=== PATIENT | female | born 1940 | race Caucasian/White ===

== ENCOUNTER 2021-02-11 10:54 | Day surgery (SDC) | payer OTHER ==
[~2021-02-11] VITALS: Ht 160 cm; Wt 83.9 kg
[~2021-02-11 10:54] MED LIST: HYDROCHLOROTH12.5 M2 PO; LIPITOR 40 MG T40 M1 PO; PROTONIX40 M2 PO; VITAMIN D31250 MC1 PO; VITAMIN D350 MCG PO
[2021-02-11 11:53] LABS: HEMATOCRIT 40.7 % (37.0-47.0); HEMOGLOBIN 13.3 gm/dL (12.0-15.0); MCHC 32.8 g/dL (28.0-37.0); MCV 91.5 fL (80.0-100.0); RBC 4.45 mil/uL (4.20-5.00); RDW 12.8 % (10.5-14.5)
[2021-02-11 12:02] LABS: CALCIUM 9.2 mg/dL (8.5-10.1); POTASSIUM 3.2 mmol/L (3.5-5.1)
[2021-02-11 12:09] LABS: ALBUMIN 3.3 g/dL (3.4-5.0); TOTAL BILIRUBIN 1.7 mg/dL (0.2-1.0); TOTAL PROTEIN 6.8 g/dL (6.4-8.2)
[2021-02-11 14:06] VITALS: BP 131/80
[2021-02-11] MEDS ORDERED: MIRALAX17 GM PO (14:16)
[2021-02-11] MEDS ORDERED: COLACE 100 MG100 MG PO (14:16)
[2021-02-11] MEDS ORDERED: HYDROCODON-ACE1 EAC7 PO (14:16)
[2021-02-11 15:02] VITALS: BP 131/80
--- NOTE | 2021-02-12 06:51 | EKG ---
[place] [address] [facility] [place] [address] ELECTROCARDIOGRAM REPORT Name: SANTIAGO BRO Room #: [facility].#: [id number] Admission: 02/11/21 Attend Phys: Kelechi Campuzano MD Discharge: Date of : 42 Report #: [id number] [facility]ly [facility] Test Date: 2021-02-11 Test Time: 11:59:15 Pat Name: SANTIAGO BRO Department: Room: Gender: F Rn Float: SBUL : 1940 Requested By: Kelechi Campuzano Order Number: [id number] : [address] Measurements Intervals [place] Rate: 73 P: -10 AK: 111 QRS: -6 QRSD: 91 T: 8 QT: 404 QTc: 446 Interpretive Statements Sinus rhythm Borderline short AK interval No previous ECG available for comparison Electronically Signed On 02-12-2021 6:51:[address] [email or web address] <ELECTRONICALLY SIGNED> By: [address] Street MD, [facility] 02/12/[address] MD, FACC /EPI
--- NOTE | 2021-02-17 09:08 | PATH ---
[facility] [place] [address] PATHOLOGY RPT PROCEDURE Name: SANTIAGO BRO Room #: [facility] [place].#: [id number] Admission: 02/11/21 Date of : 42 Discharge: 02/11/21 Report #: [id number] Path Case #: [id number] [facility] Accession Number: [id number] . 01 Material submitted: . gallbladder - GALLBLADDER . 01 Clinical history: . LAPAROSCOPIC CHOLECYSTECTOMY SYMPTOMATIC CHOLELITHIASIS FOR PA: "DR. CHANDLER MENTIONED A "WHITE STREAK-LIKE" LOCUS ON THE [place] OF THE GALLBLADDER-- HEPATIC BED. PLEASE SAMPLE THAT."- Dr. FELIPE . 02 Diagnosis: Gallbladder, cholecystectomy: - Mild chronic cholecystitis. - Cholelithiasis. 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 (IUV:pit; 02/16/2021) QTP 02/16/2021 [facility] Local . 02 Electronically signed: . Prachi Hein MD, Pathologist NPI- [id number] . 01 Gross description: . Fixative: Formalin Labeled: Gallbladder Specimen received: Previously opened cholecystectomy specimen Dimensions: 7.8 x 4.2 x 1.3 cm Serosa: Yellow-green and smooth with a white rubbery nodule on the hepatic bed measuring 1.8 x 1.2 x 1.0 cm. The nodule is located 6.2 cm from the cystic duct margin. Lymph node: None identified Mucosa: Green and velvety, wrinkled Average wall thickness: 0.2 x 0.5 cm Calculi: An ovoid brown roughened calculus is present within the container, which measures 2.8 cm in greatest dimension. Abnormalities: Previously described nodule on hepatic bed A1- Machine Milker body, fundus, and the cystic duct margin. A2- Entire nodule, serially sectioned. ([facility] [place]; 02/13/2021) [facility] 02/13/2021 1603 Local . 02 Pathologist provided ICD-10: K80.10 . [address] [address] PATHOLOGY RPT PROCEDURE Name: SANTIAGO BRO Room #: [facility] M.R.#: [id number] Admission: 02/11/21 Date of : 42 Discharge: 02/11/21 Report #: [id number] Path Case #: [id number] [facility] . [id number] Specimen Comment: A courtesy copy of this report has been sent to [phone] Specimen Comment: [phone] Specimen Comment: Report sent to / DR COWAN Performed at: [address], [place], [place] [id number] MD Mehran Vanegas MD Phone: [phone] Performed at: [address] [id number] MD Prachi Hein MD Phone: [phone]
== END 2021-02-11 16:25 | disposition home or self-care (01) ==
LOC: OR 10:54
PROVIDERS: ATTEND Surgery
DX: K80.10 Calculus of gallbladder with chronic cholecystitis without obstruction (principal); K76.89 Other specified diseases of liver; I10 Essential (primary) hypertension; E78.5 Hyperlipidemia, unspecified; K21.9 Gastro-esophageal reflux disease without esophagitis; Z98.890 Other specified postprocedural states; Z79.899 Other long term (current) drug therapy; Z20.822 Contact with and (suspected) exposure to COVID-19; Z98.41 Cataract extraction status, right eye; Z98.42 Cataract extraction status, left eye; Z88.2 Allergy status to sulfonamides
CPT/HCPCS: 50010; 50101; 50411; 50555; 50558; 51489; 52265; 52266; 53307; 53310; 53312; 54022; 54118; 55245; 56462; 56525; 56526; 56674; 58574; 62110; 62900; 70005